=== PATIENT | female | born 1990 | race Caucasian/White ===

== ENCOUNTER 2024-10-27 18:39 | Emergency (ER) | payer BC, SELFPAY ==
[2024-10-27 18:44] VITALS: BP 129/78; PULSE 81; RESP 17; TEMP 36.4; O2SAT 97; BMI 37.2
[2024-10-27 20:31] LABS: Basophils % 0.7 %; Eosinophils % 0.6 %; Hematocrit 39.1 % (36-47); Lymphocytes # 1.4 10^3/uL (0.8-4.8); Mean Corpuscular Hemoglobin 30.2 pg (27-33); Mean Corpuscular Volume 91.6 fl (85-98); Mean Platelet Volume 9.9 fL (7.4-10.4); Monocytes # 0.6 10^3/uL (0.2-0.9); Monocytes % 11.5 %; Neutrophils # 3.28 10^3/uL (1.8-7.7); Nucleated Red Blood Cells % 0 %; Platelet Count 362 10^3/cmm (157-399); Red Blood Count 4.27 10^6/uL (3.85-5.65); Red Cell Distribution Width 13.5 % (12.1-15.1); White Blood Count 5.38 10^3/uL (3.29-11.43)
[2024-10-27 20:37] LABS: Bilirubin Urine Negative (Negative); Blood Urine 3+ (Negative); Glucose Urine UA Negative (Normal); Ketones Urine Negative (Negative); Leukocyte Esterase Urine Negative (Negative); Nitrate Urine Negative (Negative); Protein Urine Negative (Negative); Specific Gravity, Urine 1.003 (1.005-1.030); Urine Appearance Clear (CLEAR); Urine Color Yellow (Yellow); Urobilinogen Urine 0.2 mg/dL (Negative); pH Urine 6.5 (5-7)
[2024-10-27 20:40] LABS: Add Urine Microscopic? YES; Bacteria Urine None Seen /hpf; Hyaline Casts Urine 0-4 /lpf; Squamous Epithelial Cell Urine 0-5 /hpf (0-5); WBC Urine 0-5 /hpf (0-5)
[2024-10-27 20:54] LABS: Alanine Aminotransferase 12 U/L (0-33); Albumin Level 4.1 g/dL (3.5-5.2); Alkaline Phosphatase 73 U/L (35-105); Anion Gap 16.3 (5-19); Aspartate Amino Transferase 18 U/L (0-32); Blood Urea Nitrogen 5 mg/dL (6-20); Calcium 9.5 mg/dL (8.5-10.5); Carbon Dioxide 27 mmol/L (22-29); Chloride 100 mmol/L (98-107); Globulin 3.8 g/dL (1.3-4.6); Glomerular Filtration Rate 114.4 mL/min (90-130); Glucose 78 mg/dL (65-115); Osmolality Calculated 286 mOsm/kg (285-295); Potassium 3.3 mmol/L (3.5-5.1); Sodium 140 mmol/L (136-145); Total Bilirubin 0.2 mg/dL (0.15-1.2); Total Protein 7.9 g/dL (6.6-8.7)
[2024-10-27 21:14] LABS: HCG Qualitative Urine. Negative (Negative)
[2024-10-28 01:27] VITALS: BP 133/83; PULSE 64; RESP 16; O2SAT 99
--- NOTE | 2024-10-28 03:50 | CTR_ITS ---
PROCEDURE INFORMATION: Exam: CT Abdomen And Pelvis With Contrast Exam date and time: 10/28/2024 4:44 AM Age: 34 years old Clinical indication: Abdominal pain; Generalized; Additional info: Diffuse abdominal pain TECHNIQUE: Imaging protocol: Computed tomography of the abdomen and pelvis with contrast. Radiation optimization: All CT scans at this facility use at least one of these dose optimization techniques: automated exposure control; mA and/or kV adjustment per patient size (includes targeted exams where dose is matched to clinical indication); or iterative reconstruction. Contrast material: OMNI 350; Contrast volume: 100 ml; Contrast route: INTRAVENOUS (IV); COMPARISON: No relevant prior studies available. RADIATION DOSE METRICS: Total DLP (mGy-cm): 959.2 FINDINGS: Liver: Normal. No mass. Gallbladder and biliary ducts: Status post cholecystectomy. No evidence of significant biliary obstruction. Pancreas: Normal. No ductal dilation. Spleen: Normal. No splenomegaly. Adrenal glands: Normal. No mass. Kidneys and ureters: Patchy cortical hypoattenuation in the lower pole of the right kidney. No hydronephrosis. Stomach and bowel: Apparent circumferential wall thickening in the ascending and proximal transverse colon. Appendix: No evidence of appendicitis. Intraperitoneal space: Unremarkable. No free air. No significant fluid collection. Vasculature: Unremarkable. No abdominal aortic aneurysm. Lymph nodes: Unremarkable. No enlarged lymph nodes. Urinary bladder: Unremarkable as visualized. Reproductive: Unremarkable as visualized. Bones/joints: Unremarkable. No acute fracture. Soft tissues: Unremarkable. CT/CT abdomen pelvis w con* [id number] IMPRESSION: 1. Subtle findings suggestive of pyelonephritis of the right kidney. Correlate with clinical and laboratory findings. 2. Apparent circumferential wall thickening in the ascending and proximal transverse colon. Findings suggests inflammatory or infectious colitis.
[2024-10-28 04:21] LABS: Lipase 37 U/L (13-60)
--- NOTE | 2024-10-28 04:40 | W.ED.ABDPA2 ---
HPI - Abdominal Pain General: Chief Complaint: Abdominal Pain Stated Complaint: lower abdominal pain bloody stool Time Seen by Provider: 10/28/24 03:50 History of Present Illness: Selin Blanco presents to the ER with a 4-day history of diarrhea, abdominal pain, and associated symptoms. The patient has a history of HSV-1 outbreaks. The patient reports that her symptoms began on Thursday with body aches, fever, chills, and joint pain. On Thursday, she experienced severe body aches. She visited a nurse practitioner who prescribed antivirals, suspecting an HSV-1 outbreak. For the past 3-4 days, the patient has been experiencing intermittent diarrhea every 30 minutes, described as yellow in color. She notes that eating triggers an immediate need to use the bathroom. Yesterday afternoon, around 2 AM, she experienced a severe cramp in her lower right abdomen. Today, she noticed blood in the toilet after having diarrhea, which caused her significant concern. The patient reports cramping along her lower abdomen, more pronounced on the right side. She mentions having her period two weeks ago and is now experiencing bleeding again, unsure if it's menstrual or rectal in origin. The patient's condition has been fluctuating over the past 3-4 days, with periods of feeling better alternating with feeling unwell. She has also experienced vomiting. The patient notes that she has never experienced such symptoms with a stomach virus before. She reports a history of what she assumed was shingles or HSV-1 outbreak about 6 years ago, which presented with a few sores and nerve pain, and responded well to Valtrex treatment. The patient had an abdominal x-ray done in [place], which showed gas. She has not had a CT scan performed prior to this ER visit. Related Data Home Medications ?Medication ?Instructions ?Recorded ?Confirmed amlodipine 10 mg tablet 10 mg PO DAILY 04/20/22 04/20/22 fluoxetine 40 mg capsule (Prozac) 40 mg PO DAILY 04/20/22 04/20/22 norgestimate 0.18 mg/0.215mg/0.25 1 tab PO DAILY 04/20/22 04/20/22 mg-ethinyl estradiol 0.025 mg tablet (Kfu-Oo-Wozouapy) Previous Rx's ?Medication ?Instructions ?Recorded doxycycline hyclate 100 mg capsule 100 mg PO BID 5 days #10 caps 04/20/22 prednisone 20 mg tablet 20 mg PO DAILY 5 days #5 tabs 04/20/22 Allergies Allergy/AdvReac Type Severity Reaction Status Date / Time benzoyl peroxide Allergy Intermediate ADR-Back Verified 04/20/22 15:03 Pain cephalexin Allergy Intermediate ADR-Anxiety Verified 04/20/22 15:03 latex Allergy ALGY-Rash Verified 10/27/24 18:47 Review of Systems General: Reports: 10 or more systems reviewed and unremarkable except in HPI and below Physical Exam Const: COMMON NORMALS: no acute distress, patient oriented x3, healthy appearing, alert and well nourished HENMT: COMMON NORMALS: normocephalic HEAD & SCALP: normocephalic Eye: COMMON NORMALS: EOMs intact bilaterally Neck/C-Spine: COMMON NORMALS: full ROM and supple Resp: COMMON NORMALS: normal respiratory effort, No retractions and clear to auscultation bilaterally AUSCULTATION: clear to auscultation bilaterally Cardio: COMMON NORMALS: regular rate, regular rhythm, No gallops present (Cardio) and No murmurs present (Cardio) RATE: regular rate RHYTHM: regular rhythm GI: COMMON NORMALS: Soft to palpation and non-tender PALPATION: Yes Soft to palpation Extremity: GENERAL: Yes normal exam except as noted Neuro: COMMON NORMALS: patient oriented x3 SENSORIUM/ORIENTATION: Yes alert Skin: COMMON NORMALS: no rashes or lesions noted GENERAL SKIN EXAM: no rashes or lesions noted Course Vital Signs: Vital signs: Vital Signs Temperature 97.6 F 10/27/24 18:44 Pulse Rate 71 10/28/24 06:31 Respiratory Rate 17 10/28/24 06:31 Blood Pressure 141/90 10/28/24 06:31 Pulse Oximetry 98 10/28/24 06:31 Oxygen Delivery Me thod Room Air 10/27/24 18:44 MDM - Abdominal Pain Medical Decision Making Acute Gastroenteritis vs. Inflammatory Bowel Disease Assessment: Initial symptoms began on Thursday with body aches, progressing to fever, chills, and severe joint pain by Thursday. Diarrhea has been occurring every 30 minutes, described as yellow in color. Patient reports vomiting as well. Previously seen by a nurse practitioner who prescribed antivirals for suspected HSV-1 outbreak. However, she has not rashes at this time. Abdominal x-ray in [place] showed gas. On examination, patient reports mild tenderness in the lower abdomen, more pronounced on the right side. - CT demonstrated findings suggestive of inflammatory infectious colitis. Favoring infectious colitis at this time. She also had a subtle finding suggestive of pyelonephritis on the right kidney. However, her urinalysis did not show signs of infection. - If symptoms continue beyond 7-10 days, advise patient to follow up with primary care physician or gastroenterology for consideration of colonoscopy - Educate patient on the importance of maintaining hydration due to ongoing diarrhea and vomiting - Instruct patient to return to the ER if symptoms worsen or new concerning symptoms develop Lab Data 10/27/24 20:19 10/27/24 20:19 Labs/Radiology: Radiology Impressions Abdomen/Pelvis CT 10/28/24 03:50 IMPRESSION: 1. Subtle findings suggestive of pyelonephritis of the right kidney. Correlate with clinical and laboratory findings. 2. Apparent circumferential wall thickening in the ascending and proximal transverse colon. Findings suggests inflammatory or infectious colitis. Laboratory Results WBC 5.38 10^3/uL (3.29-11.43) 10/27/24 20:19 RBC 4.27 10^6/uL (3.85-5.65) 10/27/24 20:19 Hgb 12.90 g/dL (11.27-16.99) 10/27/24 20:19 Hct 39.1 % (36-47) 10/27/24 20:19 MCV 91.6 fl (85-98) 10/27/24 20:19 MCH 30.2 pg (27-33) 10/27/24 20:19 MCHC 33.0 g/dL (30-55) 10/27/24 20:19 RDW 13.5 % (12.1-15.1) 10/27/24 20:19 Plt Count 362 10^3/cmm (157-399) 10/27/24 20:19 MPV 9.9 fL (7.4-10.4) 10/27/24 20:19 Neut % (Auto) 61.0 % 10/27/24 20:19 Lymph % (Auto) 26.0 % 10/27/24 20:19 [place] % (Auto) 11.5 % 10/27/24 20:19 Eos % (Auto) 0.6 % 10/27/24 20:19 Baso % (Auto) 0.7 % 10/27/24 20:19 Neut # (Auto) 3.28 10^3/uL (1.8-7.7) 10/27/24 20:19 Lymph # (Auto) 1.4 10^3/uL (0.8-4.8) 10/27/24 20:19 [place] # (Auto) 0.6 10^3/uL (0.2-0.9) 10/27/24 20:19 Eos # (Auto) 0.0 10^3/uL (0.0-0.8) 10/27/24 20:19 Baso # (Auto) 0.0 10^3/uL (0.0-0.1) 10/27/24 20:19 Nucleated RBC % (auto) 0 % 10/27/24 20:19 Nucleated RBCs # 0.0 /100WBC 10/27/24 20:19 Sodium 140 mmol/L (136-145) 10/27/24 20:19 Potassium 3.3 mmol/L (3.5-5.1) L 10/27/24 20:19 Chloride 100 mmol/L (98-107) 10/27/24 20:19 Carbon Dioxide 27 mmol/L (22-29) 10/27/24 20:19 Anion Gap 16.3 (5-19) 10/27/24 20:19 BUN 5 mg/dL (6-20) L 10/27/24 20:19 Creatinine 0.6 mg/dL (0.5-0.9) 10/27/24 20:19 GFR Calculation 114.4 mL/min (90-130) 10/27/24 20:19 Glucose 78 mg/dL (65-115) 10/27/24 20:19 Calculated Osmolality 286 mOsm/kg (285-295) 10/27/24 20:19 Calcium 9.5 mg/dL (8.5-10.5) 10/27/24 20:19 Total Bilirubin 0.2 mg/dL (0.15-1.2) 10/27/24 20:19 AST 18 U/L (0-32) 10/27/24 20:19 ALT 12 U/L (0-33) 10/27/24 20:19 Alkaline Phosphatase 73 U/L (35-105) 10/27/24 20:19 Total Protein 7.9 g/dL (6.6-8.7) 10/27/24 20: Albumin 4.1 g/dL (3.5-5.2) 10/27/24 20: Globulin 3.8 g/dL (1.3-4.6) 10/27/24 20: Lipase 37 U/L (13-60) 10/27/24 20: HCG, Qual Negative (Negative) 10/27/24 Urine Color Yellow (Yellow) 10/27/24 Urine Appearance Clear (CLEAR) 10/27/24 Urine pH 6.5 (5-7) 10/27/24 Ur Specific [place] 1.003 (1.005-1.030) L 10/27/24 Urine Protein Negative (Negative) 10/27/24 Urine Glucose (UA) Negative (Normal) 10/27/24 Urine Ketones Negative (Negative) 10/27/24 Urine Blood 3+ (Negative) A 10/27/24 Urine Nitrate Negative (Negative) 10/27/24 Urine Bilirubin Negative (Negative) 10/27/24 Urine Urobilinogen 0.2 mg/dL (Negative) 10/27/24 Ur Leukocyte Esterase Negative (Negative) 10/27/24 Urine RBC 6-10 /hpf (0-2) 10/27/24: Urine WBC 0-5 /hpf (0-5) 10/27/24 Ur Squamous Epith Cells 0-5 /hpf (0-5) 10/27/24 Amorphous Sediment Not Reportable 10/27/24 Urine Bacteria None seen /hpf (NONE) 10/27/24 Hyaline Casts 0-4 /lpf H 10/27/24 All radiology interpretation(s) finalized by discharge Discharge Plan Discharge Patient Disposition: Home Clinical Impression: Infectious colitis, Gastroenteritis, Viral illness Condition: Stable Prescriptions: No Action fluoxetine [Prozac] 40 mg capsule 40 mg PO DAILY norgestimate-ethinyl estradiol [Clp-Ah-Zbfkzvjv] 0.18/0.215/0.25 mg-25 mcg tablet 1 tab PO DAILY amlodipine 10 mg tablet 10 mg PO DAILY doxycycline hyclate 100 mg capsule 100 mg PO BID 5 Days Qty: 10 0RF prednisone 20 mg tablet 20 mg PO DAILY 5 Days Qty: 5 0RF Discharge Orders: Discharge ED (Routine); Ordered 10/28/24 Ordered By: Fan Javier Referrals: Christy Mesa MD [Primary Care Provider, [facility]] Discharge Diet: Advance as tolerated Discharge Activity: Resume usual activity Patient Instructions: Opioid Safety, Pain Management Activity Restrictions/Additional Instructions: Please follow-up with your primary care physician as needed for persistent symptoms. Return to the emergency department with any new or worsening symptoms. Print Language: Maltese Coding Level of Care Code ED Fancy Packer for Jessica Cuenca
[2024-10-28] MEDS: iohexol 350 mg/mL 500 mL Btl (per mL) IV (04:47)
[2024-10-28] MEDS: sodium chloride 0.9% 1,000 ML 999 ML IV (04:55)
[2024-10-28 05:32] VITALS: BP 118/90; PULSE 63; O2SAT 95
[2024-10-28 06:31] VITALS: BP 141/90; PULSE 71; RESP 17; O2SAT 98
== END 2024-10-28 06:33 | disposition home or self-care (01) ==
PROVIDERS: Emergency Provider General Practice; PCP Pediatrics
DX: A09 Infectious gastroenteritis and colitis, unspecified (principal); Z79.899 Other long term (current) drug therapy
CPT/HCPCS: 36415; 74177; 80053; 81001; 81025; 83690; 85025; 99285; J7030